=== PATIENT | female | born 1990 | race Caucasian/White ===

== ENCOUNTER 2019-02-13 19:57 | Emergency (ER) | payer BC, OTHER ==
[~2019-02-13] VITALS: Wt 83.9 kg
[~2019-02-13 19:57] MED LIST: PRENAT PO
[2019-02-13] MEDS ORDERED: NAPR-985 PO (23:44)
--- NOTE | 2019-02-13 23:53 | ERD ---
ER Documentation Chief Complaint Chief Complaint R wrist pain x 1 week r/o injury at work HPI Is a 28-year-old Faroese-speaking pxlxf-zwoa-nlbycumf female presents to the ED complaining of right wrist pain times 1 week. 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 She states pain is worse with movement of her wrist and right thumb. Pain is worse with flexion and extension of her thumb. She reports some associated tingling of her first and second fingers. No direct injury reported. No fevers or chills. No other complaints. ROS All systems reviewed and are negative except as per history of present illness. Medications Home Meds Active Scripts Naproxen* (Naprosyn*) 500 Mg Tablet, 500 MG PO BID PRN for PAIN AND/OR INFLAMMATION, #30 TAB Prov:SYEDA CARMEN PA-C 02/13/19 Reported Medications Multivit/Min/Fol Ac/Iron/Pren* ( S*) 1 Tab Tab, 1 TAB PO DAILY, TAB 05/02/16 Allergies Allergies: Coded Allergies: No Known Allergy (Unverified , 11/27/13) PMhx/Soc Medical and Surgical Hx: pt denies Medical Hx, pt denies Surgical Hx Hx Alcohol Use: No Hx Substance Use: No Hx Tobacco Use: No Smoking Status: Never smoker Physical Exam Vitals Vital Signs Date Temp Pulse Resp B/P (MAP) Pulse Ox O2 O2 Flow FiO2 Time Delivery Rate 02/13/19 99.6 78 20 140/66 99 20:17 (90) Physical Exam Const: No acute distress Head: Atraumatic Eyes: Normal Conjunctiva ENT: Normal External Ears, Nose and Mouth. Neck: Full range of motion. No meningismus. Resp: Clear to auscultation bilaterally Cardio: Regular rate and rhythm, no murmurs Abd: Soft, non tender, non distended. Normal bowel sounds Skin: No petechiae or rashes Back: No midline or flank tenderness Ext: + Pain and swelling along the radial styloid. Pain with active and passive stretching of the thumb. + Finklestien's test. Radial, median, ulnar nerves intact. Cap refill < 2 seconds. Neur: Awake and alert Psych: Normal Mood and Affect Results 24 hrs Current Medications Medications Dose Sig/Sherrie Start Time Status Last (Trade) Ordered Route PRN Stop Time Admin Dose Reason Admin Ibuprofen 600 mg ONCE ONCE 02/14/19 DC (Motrin) PO 00:00 02/14/19 00:00 650 mg ONCE ONCE 02/14/19 Acetaminophen PO 00:00 (Tylenol 02/14/19 00:01 Tab) Procedures/MDM PROCEDURES: Splint Assessment: Neurovascularly intact post splint placement with good fit. ED COURSE: The patient was given Tylenol The medication was well tolerated and the patient had market improvement in symptoms. The patient remained stable throughout ED course. MEDICAL DECISION MAKING: This is a 28-year-old fvgez-lfqj-fmhpnhue female presenting with symptoms consistent with tenosynovitis. She is neurovascular intact. No evidence of compartment syndrome, neurologic injury, vascular injury, open joint, open fracture, tendon laceration, or foreign body. She was given Tylenol here and placed in a Velcro wrist splint for comfort. Given referral for NAYA Woodall for further management of her pain. She may need steroid injection and orthopedic referral if pain continues to persist. Strict return precautions discussed. PRESCRIPTIONS: Naproxen SPECIALIST FOLLOW UP RECOMMENDED: None Patient has been advised to follow up with primary care in 1-2 days. Blood Pressure Assessment: Patient's blood pressure was elevated (>120/80) but appears stable without evidence of hypertension emergency or urgency. The patient was counseled about the risks of hypertension and urged to pursue outpatient monitoring and therapy within a week with their primary care physician. Departure Diagnosis: Primary Impression: De Quervain thyroiditis Condition: Stable Patient Instructions: What Is De Quervain Tenosynovitis?, De Quervain Tenosynovitis Referrals: [facility] YOU HAVE RECEIVED A MEDICAL SCREENING EXAM AND THE RESULTS INDICATE THAT YOU DO NOT HAVE A CONDITION THAT REQUIRES URGENT TREATMENT IN THE EMERGENCY DEPARTMENT. FURTHER EVALUATION AND TREATMENT OF YOUR CONDITION CAN WAIT UNTIL YOU ARE SEEN IN YOUR DOCTORS OFFICE WITHIN THE NEXT 1-2 DAYS. IT IS YOUR RESPONSIBILITY TO MAKE AN APPOINTMENT FOR FOLOW-UP CARE. IF YOU HAVE A PRIMARY DOCTOR --you should call your primary doctor and schedule an appointment IF YOU DO NOT HAVE A PRIMARY DOCTOR YOU CAN CALL OUR PHYSICIAN REFERRAL HOTLINE AT IF YOU CAN NOT AFFORD TO SEE A PHYSICIAN YOU CAN CHOSE FROM THE FOLLOWING [facility] [address] [facility]. [facility] [address] [facility] [facility] [address] [facility] [facility] [address] [facility] [address] [facility]. [facility] [address] [facility]. [facility] YOU HAVE RECEIVED A MEDICAL SCREENING EXAM AND THE RESULTS INDICATE THAT YOU DO NOT HAVE A CONDITION THAT REQUIRES URGENT TREATMENT IN THE EMERGENCY DEPARTMENT. FURTHER EVALUATION AND TREATMENT OF YOUR CONDITION CAN WAIT UNTIL YOU ARE SEEN IN YOUR DOCTORS OFFICE WITHIN THE NEXT 1-2 DAYS. IT IS YOUR RESPONSIBILITY TO MAKE AN APPOINTMENT FOR FOLOW-UP CARE. IF YOU HAVE A PRIMARY DOCTOR --you should call your primary doctor and schedule and appointment IF YOU DO NOT HAVE A PRIMARY DOCTOR YOU CAN CALL OUR PHYSICIAN REFERRAL HOTLINE AT . IF YOU CAN NOT AFFORD TO SEE A PHYSICIAN YOU CAN CHOSE FROM THE FOLLOWING [facility] INSTITUTIONS: [address] [place], [place] [id number] [place] [address] [address] [place] [address] [facility] URGENT CARE/SPECIALTIES Additional Instructions: Please follow-up at [facility] or [facility] for further treatment of your pain. Wear the wrist for comfort. Take the ibuprofen for pain. If you are still having significant pain after 2-6 weeks, I recommend going to the hospital as above and being followed by an orthopedist. You may need a glucocorticoid injection or surgery if pain persists. Return here for any new or worsening symptoms. Paciente aconseja volver a Departamento de urgencias inmediatamente para sntomas nuevos o que empeoran . Paciente aconseja posteriores con el PCP en 1-2 fink. Si el paciente no tiene ninguna de atencin primaria pueden seguir con [facility] [address] [place] [address] o [facility] + [address] [address] SYEDA CARMEN PA-C Feb 13, 2019 23:53
[2019-02-14] MEDS ORDERED: IBUPROFEN 600 MG TAB PO ONE
[2019-02-14] MEDS ORDERED: ACETAMINOPHEN 325 MG TAB PO ONE
[2019-02-14 00:01] VITALS: BP 125/86; PULSE 74; RESP 18
== END 2019-02-14 00:02 | disposition home or self-care (01) ==
LOC: FTE 19:57
DX: E06.1 Subacute thyroiditis (principal)